=== PATIENT | male | born 1995 | race Caucasian/White ===

== ENCOUNTER 2023-10-14 23:23 | Emergency (ER) | payer OTHER ==
[~2023-10-14] VITALS: Ht 175.3 cm; Wt 72.6 kg
[2023-10-14] MEDS ORDERED: CHLORDIAZEPOXIDE HCL 25 MG CAPSULE PO ONE (23:45)
[2023-10-14] MEDS ORDERED: CLONIDINE HCL 0.1 MG TABLET PO ONE (23:45)
[2023-10-14] MEDS ORDERED: CHLORDIAZEPOXIDE HCL 25 MG CAPSULE ONE (23:46)
[2023-10-14] MEDS ORDERED: CLONIDINE HCL 0.1 MG TABLET ONE (23:46)
[2023-10-15] LABS: *BILIRUBIN,URIN NEGATIVE (NEGATIVE); *BLOOD, URINE NEGATIVE (NEGATIVE); *CLARITY,URINE CLEAR (CLEAR); *COLOR,URINE YELLOW (YELLOW); *KETONES,URINE NEGATIVE (NEGATIVE); *PROTEIN,URINE NEGATIVE (NEGATIVE); *UROBILINOGEN,URINE 0.2 E.U./dl (NORMAL); LEUKOCYTE ESTERASE ,URINE NEGATIVE (NEGATIVE); NITRITE, URINE NEGATIVE (NEGATIVE); UGLUCOSE NEGATIVE (NEGATIVE)
[2023-10-15 00:38] VITALS: BP 133/105; O2SAT 97
== END 2023-10-15 00:39 | disposition home or self-care (01) ==
LOC: ER 23:29
DX: I10 Essential (primary) hypertension (principal); F10.239 Alcohol dependence with withdrawal, unspecified; F17.210 Nicotine dependence, cigarettes, uncomplicated; Y90.9 Presence of alcohol in blood, level not specified
CPT/HCPCS: 93005; A4606; A4663

== ENCOUNTER 2023-11-01 17:27 | Emergency (ER) | payer OTHER ==
[~2023-11-01] VITALS: Ht 172.7 cm; Wt 74.8 kg
[2023-11-01] MEDS ORDERED: LIDOCAINE HCL 1% 20 ML VIAL ONE (18:00)
[2023-11-01] MEDS: LIDOCAINE HCL 1% 20 ML VIAL IJ ONE (18:12)
[2023-11-01] MEDS ORDERED: CHLO473M5 PO (18:46)
[2023-11-01] MEDS ORDERED: PENI500T PO (18:46)
[2023-11-01 18:59] VITALS: BP 139/71; TEMP 98.2; O2SAT 97
== END 2023-11-01 19:00 | disposition home or self-care (01) ==
LOC: ER 17:29
DX: K05.10 Chronic gingivitis, plaque induced (principal); K04.7 Periapical abscess without sinus; F17.200 Nicotine dependence, unspecified, uncomplicated; Z79.899 Other long term (current) drug therapy
CPT/HCPCS: A4606; A4663; J3490